=== PATIENT | male | born 1975 | race Two or more races ===

== ENCOUNTER 2022-06-12 03:08 | Emergency (ER) | payer MEDICAID, OTHER ==
[~2022-06-12] VITALS: Ht 177.8 cm; Wt 64.4 kg
[~2022-06-12 03:08] MED LIST: ASPI-1169 PO
--- NOTE | 2022-06-12 03:17 | NUR ---
Bibself C/O S/p exposure to covid + relatives, c/o headache and chest pain x 2 days. Tolerating R/A well with no sob. Pt Ambulatory with steady gait. Connected pt to POX and monitor. Safety Measures in place.
--- NOTE | 2022-06-12 04:06 | NUR ---
RFA #20G S/L. COVID ANTIGEN SWAB COLLECTED AND SENT TO LAB. [employer] SPINNER AT PT'S BEDSIDE
[2022-06-12] MEDS ORDERED: ACETAMINOPHEN ES 500 MG TABLET ONE (04:21)
[2022-06-12 04:22] LABS: BASOPHILS % (AUTO) 0.4 % (0.0-2.0); EOSINOPHILS % (AUTO) 0.5 % (0.0-6.0); HEMATOCRIT 46 % (39-51); HEMOGLOBIN 15.5 g/dL (13.5-17.5); LYMPHOCYTES # (AUTO) 1.6 K/uL (0.8-4.8); LYMPHOCYTES % (AUTO) 13.3 % (20.0-44.0); MEAN CORPUSCULAR HGB CONC 34 g/dl (31.0-36.0); MEAN CORPUSCULAR VOLUME 95 fL (80-96); MONOCYTES # (AUTO) 1.1 K/uL (0.1-1.30); MONOCYTES % (AUTO) 9.1 % (2.0-12.0); NEUTROPHILS # (AUTO) 9.1 K/uL (1.8-8.9); NEUTROPHILS % (AUTO) 76.7 % (43.0-81.0); PLATELET COUNT (AUTO) 253 K/uL (150-450); RED BLOOD CELL COUNT(AUTO) 4.86 MIL/uL (4.5-6.0); WHITE BLOOD COUNT (AUTO) 11.8 K/uL (4.3-11.0)
[2022-06-12] MEDS ORDERED: ACETAMINOPHEN ES 500 MG TABLET PO ONE (04:30)
[2022-06-12 04:38] LABS: CALCIUM, SERUM 7.8 mg/dL (8.5-10.1); CARBON DIOXIDE 33 mmol/L (21-32); CHLORIDE 105 mmol/L (98-107); CREATININE 0.7 mg/dL (0.6-1.3); GLUCOSE 91 mg/dL (74-106); POTASSIUM 3.3 mmol/L (3.5-5.1); SODIUM SERUM 140 mmol/L (136-145); UREA NITROGEN, BLOOD 8 mg/dL (7-18)
--- NOTE | 2022-06-12 04:45 | NUR ---
FRY COOK AT PT'S BEDSIDE
[2022-06-12] MEDS ORDERED: IBUP-1957 PO (04:59)
--- NOTE | 2022-06-12 05:28 | NUR ---
Patient discharged to home in stable condition. Written and verbal after care instructions given. Patient verbalizes understanding of instruction. PT ambulatory with a steady gait IV removed. Catheter intact and site benign. Pressure and 4x4 applied to site. No bleeding noted.
[2022-06-12 05:29] VITALS: BP 135/78
== END 2022-06-12 05:39 | disposition home or self-care (01) ==
LOC: ER 03:15
DX: R51.9 Headache, unspecified (principal); R07.9 Chest pain, unspecified; Z20.822 Contact with and (suspected) exposure to COVID-19; D72.829 Elevated white blood cell count, unspecified; F19.10 Other psychoactive substance abuse, uncomplicated
CPT/HCPCS: 99285; 71045; 87426; 93005; 85025; 80048; 36415; 84484; C9803